=== PATIENT | female | born 1955 | race Caucasian/White ===

== ENCOUNTER → 2021-03-16 | Day surgery (SDC) | payer OTHER ==
[~2021-03-16] VITALS: Ht 177.8 cm; Wt 82.6 kg
[~2021-03-16] MED LIST: CALCIUM500 MG PO; VITAMIN B-121000 MC2 SUBLING; VITAMIN D3250 MC2 PO
--- NOTE | ~2021-03-16 | O ---
[facility] [place] [address] OPERATIVE REPORT Name: AAKASH JENSEN Room #: REG [facility].#: [id number] Admission: 03/16/21 Attend Phys: Jayson Villanueva MD Discharge: Date of : 57 Report #: [id number] THIS REPORT FOR: cc: Tabby Villanueva MD,Tabby Villanueva,Jayson Calderon MD ~ cc: Tabby Villanueva MD DATE OF SERVICE: 03/16/2021 PATIENT OF: Dr. Jayson Villanueva and Dr. Tabby Villanueva PREOPERATIVE DIAGNOSES: Cholelithiasis, cholecystitis, biliary colic. POSTOPERATIVE DIAGNOSES: Cholelithiasis, cholecystitis, biliary colic. PROCEDURE: Laparoscopic cholecystectomy. SURGEON: Dr. Jayson Villanueva. ANESTHESIA: General. MACHINE HOSTLER: Bri Anderson. She is an RN. DESCRIPTION OF PROCEDURE: The patient was brought to the operating room and placed on the operating table in the supine position. Sequential compression devices were in place for DVT prophylaxis. She received an appropriate preoperative dose of Mefoxin. The patient underwent a general endotracheal anesthesia, and the abdomen was then prepped and draped in a sterile fashion. Skin and subcutaneous tissue around the umbilicus was then infiltrated with 0.5% Marcaine. Transverse infraumbilical skin incision was then performed using a #11 scalpel blade. Hemostasis obtained using electrocautery. Dissection was carried down through subcutaneous tissue to the fascia, which was then grasped between 2 Gini clamps and incised with the curved Goodman scissors. Peritoneum was entered and a pursestring suture of 0 Vicryl was then placed in the fascia. A 12 mm disposable Rachel port was then inserted through the opening and held in place with the balloon port as well as the pursestring suture. Pneumoperitoneum was obtained to a level of 10-15 mmHg. Laparoscope was inserted through this port and 2 lateral 5 mm surgiports as well as an upper midline 12 mm Surgiport were all inserted under direct visualization after infiltration with 0.5% Marcaine. Gallbladder was then grasped and retracted superiorly and the adhesions around the gallbladder were carefully dissected free using the [place] dissector and electrocautery. The cystic duct and artery were carefully dissected free. The cystic common bile duct junction was clearly identified. [place] of safety was examined anteriorly and posteriorly and the cystic duct and artery were carefully and fully identified and before placing [address] [address] OPERATIVE REPORT Name: AAKASH JENSEN Room #: REG [facility].#: [id number] Admission: 03/16/21 Attend Phys: Jayson Villanueva MD Discharge: Date of : 57 Report #: [id number] clips on each side of the artery and dividing with scissors. The cystic duct was then triply clipped on the common bile duct side, doubly clipped on the gallbladder side and divided with scissors. Gallbladder was then dissected free from the bed using the hook electrocautery. Prior to completing the dissection, the gallbladder was retracted superiorly and the bed inspected for hemostasis, which was found to be intact. Gallbladder was then transected and placed in an EndoCatch bag and brought out through the periumbilical port and sent as specimen to pathology. The port was then returned to the abdomen. The area was then copiously irrigated with warm saline solution, which was suctioned free. Hemostasis was checked and found to be intact. The ports were all removed under direct visualization, hemostasis intact at each port site. Pneumoperitoneum was released and the periumbilical port was then also removed under direct visualization, hemostasis intact at that port site as well. The periumbilical fascia was then closed using the 0 Vicryl pursestring suture. The upper midline fascia was then closed using a [id number]-eq-avyay 0 Vicryl suture. Skin was then closed using interrupted vertical mattress 5-0 nylon sutures and the wounds dressed with Band-Aids. The patient was then awakened from the general endotracheal anesthesia, extubated, and taken to recovery room in good condition. Estimated blood loss was approximately 10 mL and the patient tolerated the procedure well. All sponge, lap and instrument counts were correct x2. By: [id number] Jayson Villanueva MD /nt
[2021-03-16 08:33] VITALS: BP 122/64
[2021-03-16 12:54] VITALS: BP 122/64
--- NOTE | 2021-03-18 13:08 | PATH ---
[facility] [address] [place] [address] PATHOLOGY RPT PROCEDURE Name: AAKASH JENSEN Room #: REG [facility] M.R.#: [id number] Admission: 03/16/21 Date of : 57 Discharge: Report #: [id number] Path Case #: [id number] [facility] Accession Number: [id number] . 01 Material submitted: . gallbladder - GALLBLADDER . 01 Clinical history: . LAPAROSCOPIC CHOLECYSTECTOMY GALLSTONES . 02 Diagnosis: Gallbladder, cholecystectomy: - Chronic cholecystitis with cholelithiasis. - One benign periductal lymph node identified. - Negative for malignancy. (ANK:nayely; 03/18/2021) MBR 03/18/2021 1055 Local . 02 Electronically signed: . Rehana Krishnan MD, Pathologist NPI- [id number] . 01 Gross description: . Fixative: Formalin Labeled: Gallbladder Specimen received: Previously disrupted with a 0.4 x 0.4 cm transmural defect Dimensions: 8.1 x 2.9 x 2.2 cm Lymph node: Lyles and rubbery, 0.6 x 0.4 x 0.3 cm, serially sectioned Serosa: Blue-ricketts and dusky Calculi: Multiple yellow bosselated choleliths aggregating 3.8 x 2.5 x 0.8 cm, some of which are lodged in the cystic duct Mucosa: Green and velvety without caballero stippling Average wall thickness: 0.3 cm Abnormalities: None A1: Gallbladder, represented to include the entirety of the candidate lymph node (NAKNEK; 03/17/2021) DKA/DKA 03/17/2021 1306 Local . 02 Pathologist provided ICD-10: K80.10 . 02 CPT . 154641 Specimen Comment: A courtesy copy of this report has been sent to [phone], [place] [address] PATHOLOGY RPT PROCEDURE Name: AAKASH JENSEN Room #: REG [facility]#: [id number] Admission: 03/16/21 Date of : 57 Discharge: Report #: [id number] Path Case #: [id number] Specimen Comment: [id number] Specimen Comment: Report sent to / DR CINTRON Performed at: 01 [facility] Derek Cai [address] [place] [address] [address], [place] [id number] MD Jason Steward MD Phone: [phone] Performed at: [address] [id number] MD Rehana Krishnan MD Phone: [phone]
== END | disposition home or self-care (01) ==
LOC: OR 07:40
PROVIDERS: ATTEND Surgery
DX: K80.60 Calculus of gallbladder and bile duct with cholecystitis, unspecified, without obstruction (principal); Z20.822 Contact with and (suspected) exposure to COVID-19; Z90.710 Acquired absence of both cervix and uterus; Z98.51 Tubal ligation status
CPT/HCPCS: 50010; 50101; 50411; 50555; 51474; 51489; 52265; 53312; 53314; 56462; 56524; 56528; 58574; 58909; 62110; 62900; 70005